=== PATIENT | female | born 1955 | race Hispanic/Latino ===

== ENCOUNTER 2020-07-05 02:47 | Inpatient (IN) | payer MEDICAID, MEDICARE ==
[2020-07-05] MEDS ORDERED: Nitroglycerin 0.4 MG TAB 1 EACH ONE (03:11)
[2020-07-05] MEDS ORDERED: Furosemide 40 MG/4 ML VIAL ONE (03:11)
[2020-07-05 03:52] LABS: #Basophils 0.1 thou/uL (0.0-0.2); #Eosinphils 0.2 thou/uL (0.0-0.7); #Monocytes 0.3 thou/uL (0.11-0.59); #Neutrophils 2.5 thou/uL (1.40-6.50); %Basophils 1.7 % (0.0-1.0); %Eosinophils 4.8 % (0.0-10.0); %Lymphocytes 39.6 % (21.0-51.0); %Monocytes 5.4 % (0.0-10.0); %Neutrophils 48.5 % (42.0-75.0); Hemoglobin 14.2 g/dL (12.0-16.0); Mean Corpuscular HGB CONC 33.8 g/dL (32.0-36.0); Mean Corpuscular Hemoglobin 34.6 pg (27.0-31.0); Platelet Count 176 thou/uL (130-400); RBC Distribution Width 11.7 % (11.5-14.5); Red Blood Cell (RBC) Count 4.11 mill/uL (4.20-5.40); White Blood Cell (WBC) Count 5.1 thou/uL (4.8-10.8)
[2020-07-05 03:57] LABS: Bacteria/HPF 3+ HPF (None Seen); Bilirubin Negative (Negative); Blood, Urine Negative (Negative); Clarity Clear (Clear); Glucose, Urine (Dipstick) Normal (Negative); Ketone, Urine Negative (Negative); Leukocyte 25 Leu/uL (Negative); Nitrite Negative (Negative); Protein, Urine (Dipstick) 50 mg/dL (Neg-Trace); RBC/HPF 0-3 HPF (0-3); Specific Gravity, Urine 1.019 (1.002-1.036); Squamous Epithelial 0-3 HPF (0-3); Urobilinogen Normal mg/dL (Less than 2); pH, Urine 6.5 (5.0-9.0)
[2020-07-05 04:17] LABS: ALT (SGPT) 22 U/L (8-55); AST (SGOT) 25 U/L (5-34); Alkaline Phosphatase 61 U/L (40-110); Anion Gap 15 mmol/L (10-20); BUN (Urea Nitrogen) 30 mg/dL (9.8-20.1); Bilirubin, Total 0.3 mg/dL (0.2-1.2); Calc. Creatinine Clearance 0 mL/min (70-130); Calcium 9.5 mg/dL (7.8-10.44); Carbon Dioxide 25 mmol/L (23-31); Chloride 105 mmol/L (98-107); Estimated GFR-MDRD 49; Globulin 3.9 g/dL (2.4-3.5); Glucose 107 mg/dL (80-115); Protein, Total 7.9 g/dL (6.0-8.3); Sodium 141 mmol/L (136-145)
[2020-07-05] MEDS ORDERED: Nitroglycerin 2% Ointment 1 INCH/1 GM Packet ONE (04:20)
[2020-07-05 04:34] LABS: CKMB 3.9 ng/mL (0-6.6)
[2020-07-05] MEDS ORDERED: Aspirin Chewable 81 MG TAB ONE (04:44)
[2020-07-05 06:36] LABS: Troponin I 0.041 ng/mL (< 0.028)
[2020-07-05] MEDS ORDERED: Ketorolac Tromethamine 30 MG/ML VIAL ONE (07:44)
[2020-07-05] MEDS ORDERED: traMADol HCl 50 MG TAB ONE (07:52)
--- NOTE | 2020-07-05 08:15 | RAD ---
Chest AP view INDICATION: History of dyspnea and cough COMPARISON: Prior exam dated June 19, 2020 FINDINGS: Lungs: There are worsening interstitial opacities within both lower lobes likely reflected of acute on chronic interstitial disease. Cardiac silhouette: There is a worsening moderate cardiomegaly Pulmonary vasculature: There is worsening moderate pulmonary vascular congestion Pleural spaces: There are new small bilateral pleural effusions. Upper abdomen: No abnormality seen. Osseous structures: No acute osseous abnormality. Additional findings: None. IMPRESSION: Findings of CHF
[2020-07-05 09:10] LABS: Troponin I 0.051 ng/mL (< 0.028)
[2020-07-05 13:00] LABS: SARS-CoV-2 MS2 Positive; SARS-CoV-2 N Gene Negative; SARS-CoV-2 S Gene Negative; SARS-CoV-2 by NAA Not Detected (NotDetected); SARS-CoV-2 orf1ab Negative
[2020-07-05] MEDS ORDERED: Ondansetron ODT 4 MG TAB SL PRN (15:15)
[2020-07-05] MEDS ORDERED: Ondansetron PF 4 MG/2 ML Vial IVP PRN ×2 (15:15→16:03)
[2020-07-05] MEDS ORDERED: Acetaminophen 325 MG TAB PO PRN (15:15)
--- NOTE | 2020-07-05 15:23 | PDOC.HOSPP ---
- Subjective Encounter Date: 07/05/20 Encounter Time: 15:20 - Objective Vital Signs & Weight: Vital Signs (12 hours) Temp Pulse Resp BP Pulse Ox 07/05/20 14:52 98.5 F 86 16 177/90 H 95 Weight Weight 93 lb Result Diagrams: 07/05/20 03:10 07/05/20 03:10 Additional Labs: Microbiology 07/05/20 03:36 Urine clean catch Urine Culture - Preliminary Laboratory Tests 09/14/16 03/28/17 07/05/20 03:43 15:45 03:10 Lactic Acid B-Natriuretic Peptide 176.2 H 36.1 1114.3 H Troponin I SARS-CoV-2 (PCR) 07/05/20 07/05/20 07/05/20 03:10 03:36 03:38 Lactic Acid 1.3 B-Natriuretic Peptide Troponin I 0.044 H SARS-CoV-2 (PCR) Not Detected 07/05/20 07/05/20 05:42 08:36 Lactic Acid B-Natriuretic Peptide Troponin I 0.041 H 0.051 H SARS-CoV-2 (PCR) Radiology Reviewed by me: Yes (PCXR - bilat infiltrates, + edema) EKG Reviewed by me: Yes (Tele - )
[2020-07-05] MEDS: Morphine 2 MG/ML VIAL SLOW IVP PRN ×2 (15:43→20:35)
[2020-07-05] MEDS ORDERED: Labetalol HCl 100 MG/20 ML VIAL SLOW IVP PRN (16:03)
[2020-07-05] MEDS ORDERED: Nitroglycerin 0.4 MG TAB (25 Tab Bottle) SL PRN (16:03)
[2020-07-05] MEDS ORDERED: Benzonatate 100 MG CAP PO PRN (16:03)
[2020-07-05] MEDS ORDERED: Acetaminophen 500 MG TAB PO PRN (16:03)
[2020-07-05] MEDS ORDERED: Ondansetron ODT 4 MG TAB PO PRN (16:03)
[2020-07-05] MEDS ORDERED: Furosemide 40 MG/4 ML VIAL SLOW IVP SCH (16:15)
[2020-07-05 18:20] LABS: Troponin I 0.038 ng/mL (< 0.028)
[2020-07-05] MEDS: Gabapentin 300 MG CAP PO SCH (20:33)
[2020-07-05] MEDS: Famotidine 20 MG TAB PO SCH (20:33)
[2020-07-05] MEDS: Topiramate 25 MG TAB PO SCH (20:34)
[2020-07-05] MEDS: Metoprolol Tartrate 25 MG TAB PO SCH (20:34)
[2020-07-05] MEDS: Amitriptyline HCl 25 MG TAB PO SCH (20:34)
[2020-07-05] MEDS: OLANZapine 5 MG TAB PO SCH (20:34)
[2020-07-05] MEDS: Ciprofloxacin 500 MG TAB PO SCH (20:35)
[2020-07-05] MEDS ORDERED: Lisinopril 10 MG TAB PO SCH (21:00)
[2020-07-05 21:57] LABS: Troponin I 0.038 ng/mL (< 0.028)
--- NOTE | 2020-07-05 22:12 | HP ---
PRIMARY CARE PROVIDER: Roxanne Ochoa. CHIEF COMPLAINT: Shortness of breath. HISTORY OF PRESENT ILLNESS: This is a 65-year-old female who presented to [facility] Emergency Department complaining of approximately 1- to 2-day history of increased shortness of breath, cough, worsening in the last 12 to 24 hours. The patient did admit to associated chest pain, especially when coughing that was nonproductive. The patient denied any similar events recently and states she is taking no outpatient medications. The patient states she previously was in the [place], [place] area with her primary care provider, but has since moved to the [facility] and has not established a new primary care provider. The patient denied any documented fever, chills, or exposure history. The patient does admit to using cocaine in the last 2 to 3 weeks. The patient with a known history of previous drug use including cocaine and methamphetamines. The patient does admit to mild ankle swelling bilaterally, which has since improved. The patient denied any jaw discomfort, left arm pain, or back pain. The patient denied any recent trauma or injury. In the emergency room, the patient underwent general evaluation including chest imaging showing bilateral pulmonary infiltrates consistent with pulmonary edema. The patient received IV Lasix in addition to tramadol, aspirin 324 mg, transdermal nitroglycerin, and sublingual nitroglycerin. PAST MEDICAL HISTORY: 1. Hepatitis C. 2. Myocardial infarction x2 in the early . 3. Hypertension, untreated. 4. Tobacco abuse. 5. Polysubstance abuse. PAST SURGICAL HISTORY: 1. Status post small bowel obstruction. 2. Status post left thumb amputation. 3. Status post appendectomy. 4. Status post cholecystectomy. 5. Status post section x2. 6. Status post hysterectomy. PSYCHIATRIC HISTORY: 1. Anxiety disorder. 2. Bipolar disorder. 3. Depression. CURRENT MEDICATIONS: Reviewed and negative. ALLERGIES: CODEINE, COMPAZINE, TORADOL. FAMILY HISTORY: Positive for hypertension. SOCIAL HISTORY: Recently moved to the [facility] area from [place], [place]. Unemployed. Smokes up to a pack of cigarettes daily as well as vaping. Last cocaine use 2 to 3 weeks prior to this evaluation. History of methamphetamine use. No current alcohol. REVIEW OF SYSTEMS: CONSTITUTIONAL: Negative for weight loss or gain, ability to conduct usual activities. SKIN: Negative for rash, itching. EYES: Negative for double vision, pain. ENT/MOUTH: Negative for nose bleeding, neck stiffness, pain, tenderness. CARDIOVASCULAR: Negative for palpitations, dyspnea on exertion, orthopnea. RESPIRATORY: Negative for shortness of breath, wheezing, cough, hemoptysis, fever or night sweats. GASTROINTESTINAL: Negative for poor appetite, abdominal pain, heartburn, nausea, vomiting, constipation, or diarrhea. GENITOURINARY: Negative for urgency, frequency, dysuria, nocturia. MUSCULOSKELETAL: Negative for pain, swelling. NEUROLOGIC/PSYCHIATRIC: Negative for anxiety, depression. ALLERGY/IMMUNOLOGIC: Negative for skin rash, bleeding tendency. Otherwise negative except as stated per HPI. PHYSICAL EXAMINATION ON ADMISSION: VITAL SIGNS: Blood pressure 177/90, pulse 86, respiratory rate 16, temperature 98.5 degrees Fahrenheit, O2 saturation 95% on room air. GENERAL APPEARANCE: This is a 65-year-old female, alert and oriented x3, pleasant, responsive, in no acute distress. HEENT: Pupils are equal, round, reactive to light and accommodation. Extraocular muscles are intact. No scleral icterus. No conjunctival injection. Nares patent. OP is clear. NECK: Supple. No cervical adenopathy. No thyromegaly. No carotid bruits. No JVD appreciated. Cervical spine with full active and passive range of motion. No meningeal signs noted. CHEST: A few basilar crackles noted. Occasional expiratory wheeze bilaterally. CARDIOVASCULAR: S1, S2 without noted murmur, rub, or gallop. ABDOMEN: Rounded, soft, nontender, and nondistended. Bowel sounds are positive in all 4 quadrants. There is no hepatosplenomegaly. No abdominal bruits. No rebound or guarding appreciated. EXTREMITIES: Warm and dry with fair turgor. No clubbing, cyanosis, or asymmetric edema appreciated. Pulses palpable distally at the dorsalis pedis, posterior tibial, and popliteal arteries bilaterally. Capillary refill less than 2 seconds. NEUROLOGIC: Cranial nerves 2 through 12 are grossly intact. No focal or lateralizing signs appreciated. PERTINENT LABORATORY AND X-RAY FINDINGS: Sodium 141 potassium 4, chloride 105, CO2 of 25, BUN 30, creatinine 1.12, estimated GFR of 49, glucose 107. Lactic acid level 1.3. Calcium 9.5. LFTs within normal limits. Troponin I ranged between 0.041 to 0.051. BNP 1114, previously noted 36.1 on 03/28/2017. CBC showed a white blood cell count of 5.1, hemoglobin 14, hematocrit 42, MCV 102, platelet count 176 with 48.5% neutrophils. COVID-19 PCR not detected on 07/05/2020. Urine culture dated 07/05/2020, showed mixed culture with final identification pending. Portable chest x-ray dated 07/05/2020, showed bilateral pulmonary edema. Chronic changes noted. EKG dated 07/05/2020, by my interpretation shows sinus mechanism with heart rates in the 90s. Normal axis. Incomplete left bundle-branch block pattern. No acute ST-T wave changes appreciated. ASSESSMENT AND PLAN: 1. Acute congestive heart failure exacerbation. The patient will be admitted to the telemetry unit. We will continue Lasix 40 mg IV q.12 h. Check 2D transthoracic echocardiogram in the a.m. Consult Cardiology Service for evaluation. Repeat BNP in the a.m. Continue serial troponin I q.3 h. x2. Check TSH and magnesium level in the a.m. 2. Acute hypoxic respiratory failure secondary to #1. Improved after IV Lasix. We will continue oxygen supplementation as needed. See #1 above. 3. Acute kidney injury. We will continue to monitor renal status. Avoid nephrotoxic agents and limit contrast exposure. Serial creatinine in the a.m. 4. Type 2 myocardial infarction secondary to demand ischemia and #1. Continue medical management. Aspirin 81 mg daily. Consult Cardiology Service for any further recommendations. A 2D transthoracic echocardiogram pending. 5. Polysubstance abuse. Check urine drug screen today. We will offer cessation resources prior to discharge. 6. Prophylaxis. Sequential compression devices while in bed. Pepcid 20 mg p.o. b.i.d.. CODE STATUS: Full. Surrogate medical decision maker is the patient's friend whose name is Nav in the patient's room. Job ID: [id number]
[2020-07-06 03:24] LABS: Amphetamine Not Detected (NotDetected); Barbiturates Screen Not Detected (NotDetected); Benzodiazepine Screen Not Detected (NotDetected); Cocaine Metabolite Screen Detected (NotDetected); Medtox Control Line Valid? VALID (VALID); Medtox Reader # READER 1; Methadone Not Detected (NotDetected); Methamphetamine Not Detected (NotDetected); Opiate Screen Detected (NotDetected); Oxycodone Screen Not Detected (NotDetected); Phencyclidine (PCP) Not Detected (NotDetected); THC/Cannabinoid Screen Not Detected (NotDetected); Tricyclic Screen Not Detected (NotDetected)
[2020-07-06 05:06] LABS: Anion Gap 15 mmol/L (10-20); BUN (Urea Nitrogen) 34 mg/dL (9.8-20.1); Calc. Creatinine Clearance 31 mL/min (70-130); Carbon Dioxide 25 mmol/L (23-31); Chloride 102 mmol/L (98-107); Estimated GFR-MDRD 45; Glucose 127 mg/dL (80-115); Magnesium 1.9 mg/dL (1.6-2.6); Potassium 3.9 mmol/L (3.5-5.1); Sodium 138 mmol/L (136-145)
[2020-07-06] MEDS: Furosemide 40 MG/4 ML VIAL SLOW IVP SCH ×2 (05:15→15:18)
[2020-07-06] MEDS: Ciprofloxacin 500 MG TAB PO SCH ×2 (05:15→21:52)
[2020-07-06 05:20] LABS: Band 4 % (5-11); Eosinophils 2 % (0-10); Hemoglobin 13.9 g/dL (12.0-16.0); Lymphocytes 18 % (21-51); MDiff Complete? YES; Macrocytosis SLIGHT = 6-15 cells (100X) (0-5/hpf); Mean Corpuscular Hemoglobin 34.2 pg (27.0-31.0); Mean Platelet Volume 9.9 fL (7.4-10.4); Monocytes 6 % (0-10); Neutrophil 70 % (42-75); Platelet Morphology Comment PLT clumps seen-ADEQ; RBC Distribution Width 11.6 % (11.5-14.5); Red Blood Cell (RBC) Count 4.07 mill/uL (4.20-5.40); White Blood Cell (WBC) Count 5.2 thou/uL (4.8-10.8)
[2020-07-06] MEDS: Metoprolol Tartrate 25 MG TAB PO SCH (08:45)
[2020-07-06] MEDS: Ubidecarenone 50 MG CAP PO SCH (08:45)
[2020-07-06] MEDS: Famotidine 20 MG TAB PO SCH (08:45)
[2020-07-06] MEDS: Gabapentin 300 MG CAP PO SCH ×3 (08:45→21:52)
[2020-07-06] MEDS: Polyethylene Glycol 3350 17 GM Packet PO SCH (08:46)
[2020-07-06] MEDS: Aspirin 81 mg Enteric Coated Tablet PO SCH (08:46)
[2020-07-06] MEDS: Multivitamin W/ Minerals 1 TAB PO SCH (08:46)
[2020-07-06] MEDS ORDERED: Amlodipine 10 MG TAB PO SCH (09:00)
[2020-07-06] MEDS: Topiramate 25 MG TAB PO SCH ×2 (09:00→21:53)
--- NOTE | 2020-07-06 10:41 | CON ---
DATE OF CONSULTATION: CONSULTING PHYSICIAN: Martin Ho HISTORY OF PRESENT ILLNESS: The patient is a 65-year-old woman, who presents for cardiac evaluation of dyspnea. The patient has a long history apparently of congestive heart failure and coronary artery disease. She states she has previously suffered myocardial infarctions in the . The patient unfortunately has not had good follow up. She states she was last admitted with congestive heart failure in 2006. The patient has not had close followup and has been noncompliant with her medications. The patient states she had been out of her medication, and started feeling short of breath. She presented to the emergency room for further evaluation. PAST MEDICAL HISTORY: 1. Coronary artery disease. 2. Myocardial infarction. 3. Hypertension. 4. Bipolar disorder. 5. Anxiety disorder. PAST SURGICAL HISTORY: Appendectomy, cholecystectomy, , hysterectomy, small bowel obstruction. ALLERGIES: CODEINE, COMPAZINE, AND TORADOL. MEDICATIONS: None. The patient was noncompliant. FAMILY HISTORY: Positive family history of heart disease. PHYSICAL EXAMINATION: GENERAL: Thin woman, in no acute distress. VITAL SIGNS: Blood pressure 111/67. NECK: Showed no jugular venous distention. LUNGS: Have just a few crackles in the bases. HEART: Regular rate and rhythm. Normal S1 and S2. No murmurs. ABDOMEN: Nondistended. EXTREMITIES: Show no edema. VASCULAR: Radial pulses are 2+. LABORATORY DATA: Sodium 138, potassium 3.9, chloride 102, bicarbonate 25, BUN 34, and creatinine 1.2. Troponin was 0.038. Her white blood cell count is 5.2, hemoglobin 13.9, hematocrit 42.3, and platelets were 176. Chest x-ray revealed cardiomyopathy with mild pulmonary vascular redistribution. Echocardiogram revealed [id number] decreased left ventricular ejection fraction of 30% to 35%. Toxicology, positive for cocaine. IMPRESSION: 1. Congestive heart failure secondary to systolic dysfunction. 2. History of coronary artery disease. 3. History of myocardial infarction. 4. Hepatitis C. 5. Illicit drug use. PLAN: This patient presents with recurrent congestive heart failure. From a cardiac standpoint, I would recommend she be placed on Entresto. She will be started also on spironolactone. We will switch to Coreg from Toprol . The life-threatening consequences of this patient being noncompliant with her medication and followup have been explained to the patient. The patient also understands that she is at significant risk continuing to use illicit drugs. We will follow this patient with you through her hospitalization. Job ID: [id number] MICKEY
[2020-07-06 12:23] VITALS: BMI 21.0
--- NOTE | 2020-07-06 16:54 | PDOC.HOSPP ---
- Subjective Encounter Date: 07/06/20 Subjective: The patient has been saturating well on room air today. - Objective Vital Signs & Weight: Vital Signs (12 hours) Temp Pulse Resp BP Pulse Ox 07/06/20 15:06 97.7 F 70 16 106/56 L 93 L 07/06/20 11:54 97.7 F 66 17 123/73 96 07/06/20 08:00 96 07/06/20 07:02 97.9 F 58 L 16 111/67 95 Weight Admit Weight 93 lb Weight 97 lb 3.2 oz I&O: 07/05/20 07/06/20 07/07/20 06:59 06:59 06:59 Intake Total 300 Output Total 200 Balance 100 Result Diagrams: 07/06/20 04:05 07/06/20 04:05 Hospitalist ROS - Medication Medications: Active Medications Generic Name Dose Route Start Last Admin Trade Name Freq PRN Reason Stop Dose Admin Amitriptyline HCl 50 mg 07/05/20 21:00 07/05/20 20:34 Amitriptyline Hcl 25 Mg Tab PO 50 mg HS FELIX Administration Aspirin 81 mg 07/06/20 09:00 07/06/20 08:46 Aspirin 81 Mg Enteric Coated Tablet PO 81 mg DAILY FELIX Administration Ciprofloxacin 500 mg 07/05/20 20:00 07/06/20 05:15 Ciprofloxacin 500 Mg Tab PO 500 mg 0600,2000 FELIX Administration Coenzyme Q10 100 mg 07/06/20 09:00 07/06/20 08:45 Ubidecarenone 50 Mg Cap PO 100 mg DAILY FELIX Administration Furosemide 40 mg 07/06/20 06:00 07/06/20 15:18 Furosemide 40 Mg/4 Ml Vial SLOW IVP 40 mg 0600,1400 FELIX Administration Gabapentin 600 mg 07/05/20 21:00 07/06/20 15:19 Gabapentin 300 Mg Cap PO 600 mg TID FELIX Administration Iron/Minerals/Multivitamins 1 tab 07/06/20 09:00 07/06/20 08:46 Multivitamin W/ Minerals 1 Tab PO 1 tab DAILY FELIX Administration Morphine Sulfate 2 mg 07/05/20 15:13 07/05/20 20:35 Morphine 2 Mg/Ml Vial SLOW IVP 2 mg Q4H PRN Administration Pain Olanzapine 5 mg 07/05/20 21:00 07/05/20 20:34 Olanzapine 5 Mg Tab PO 5 mg HS FELIX Administration Polyethylene Glycol 17 gm 07/06/20 09:00 07/06/20 08:46 Polyethylene Glycol 3350 17 Gm Packet PO 17 gm DAILY FELIX Administration Topiramate 25 mg 07/05/20 21:00 07/06/20 09:00 Topiramate 25 Mg Tab PO 25 mg BID FELIX Administration - Exam General Appearance: awake alert ENT: normocephalic atraumatic Neck: supple, no JVD Heart: RRR Respiratory: normal chest expansion, no tachypnea Neurological: cranial nerve grossly intact, no focal deficits Hosp A/P (1) Heart failure with reduced ejection fraction Code(s): I50.20 - UNSPECIFIED SYSTOLIC (CONGESTIVE) HEART FAILURE Status: Acute (2) Bipolar 1 disorder, depressed Status: Chronic (3) Hypertension Code(s): I10 - ESSENTIAL (PRIMARY) HYPERTENSION Status: Chronic - Plan The patient's respiratory status is improving. She is diuresing well. Continue guideline directed therapy with beta-blockers and Entresto per cardiology. Hopefully she can be discharged home soon.
[2020-07-06] MEDS: Carvedilol 3.125 MG TAB PO SCH (17:37)
[2020-07-06] MEDS: Naproxen 500 MG TAB PO PRN (17:37)
[2020-07-06] MEDS: OLANZapine 5 MG TAB PO SCH (21:52)
[2020-07-06] MEDS: Amitriptyline HCl 25 MG TAB PO SCH (21:53)
[2020-07-06] MEDS: hydrOXYzine 25 MG TAB PO PRN (21:56)
[2020-07-07] MEDS: Furosemide 40 MG/4 ML VIAL SLOW IVP SCH (05:35)
[2020-07-07] MEDS: Ciprofloxacin 500 MG TAB PO SCH ×2 (05:35→21:08)
[2020-07-07] MEDS: Ubidecarenone 50 MG CAP PO SCH (10:06)
[2020-07-07] MEDS: Famotidine 20 MG TAB PO SCH (10:06)
[2020-07-07] MEDS: Multivitamin W/ Minerals 1 TAB PO SCH (10:07)
[2020-07-07] MEDS: Aspirin 81 mg Enteric Coated Tablet PO SCH (10:07)
[2020-07-07] MEDS: Gabapentin 300 MG CAP PO SCH ×3 (10:07→21:06)
[2020-07-07] MEDS: Topiramate 25 MG TAB PO SCH ×2 (10:07→21:08)
[2020-07-07] MEDS: Spironolactone 25 MG TAB PO SCH (10:08)
[2020-07-07] MEDS: Carvedilol 3.125 MG TAB PO SCH ×2 (10:08→16:43)
[2020-07-07] MEDS: Polyethylene Glycol 3350 17 GM Packet PO SCH (10:09)
[2020-07-07] MEDS: Morphine 2 MG/ML VIAL SLOW IVP PRN ×2 (12:58→19:05)
--- NOTE | 2020-07-07 16:56 | PDOC.HOSPP ---
- Subjective Encounter Date: 07/07/20 Subjective: The patient complains of increased lightheadedness today. She was unable to get out of her bed. Her blood pressure has been low this morning. - Objective Vital Signs & Weight: Vital Signs (12 hours) Temp Pulse Resp BP BP Pulse Ox 07/07/20 16:00 97.3 F L 78 17 118/59 L 94 L 07/07/20 12:23 97.6 F 79 20 117/60 96 07/07/20 07:30 97.3 F L 71 22 H 117/65 100 07/07/20 05:00 97.7 F 66 16 124/65 94 L Weight Admit Weight 93 lb Weight 97 lb 3.2 oz I&O: 07/06/20 07/07/20 07/08/20 06:59 06:59 06:59 Intake Total 300 Output Total 200 Balance 100 Result Diagrams: 07/06/20 04:05 07/06/20 04:05 Hospitalist ROS - Medication Medications: Active Medications Generic Name Dose Route Start Last Admin Trade Name Niki PRN Reason Stop Dose Admin Amitriptyline HCl 50 mg 07/05/20 21:00 07/06/20 21:53 Amitriptyline Hcl 25 Mg Tab PO 50 mg HS FELIX Administration Aspirin 81 mg 07/06/20 09:00 07/07/20 10:07 Aspirin 81 Mg Enteric Coated Tablet PO 81 mg DAILY FELIX Administration Carvedilol 3.125 mg 07/06/20 17:00 07/07/20 10:08 Carvedilol 3.125 Mg Tab PO 3.125 mg BID-WM FELIX Administration Ciprofloxacin 500 mg 07/05/20 20:00 07/07/20 05:35 Ciprofloxacin 500 Mg Tab PO 500 mg FELIX Administration Coenzyme Q10 100 mg 07/06/20 09:00 07/07/20 10:06 Ubidecarenone 50 Mg Cap PO 100 mg DAILY FELIX Administration Famotidine 20 mg 07/07/20 09:00 07/07/20 10:06 Famotidine 20 Mg Tab PO 20 mg DAILY FELIX Administration Gabapentin 600 mg 07/05/20 21:00 07/07/20 10:07 Gabapentin 300 Mg Cap PO 600 mg TID FELIX Administration Hydroxyzine HCl 25 mg 07/05/20 15:23 07/06/20 21:56 Hydroxyzine 25 Mg Tab PO 25 mg TID PRN Administration Anxiety Iron/Minerals/Multivitamins 1 tab 07/06/20 09:00 07/07/20 10:07 Multivitamin W/ Minerals 1 Tab PO 1 tab DAILY FELIX Administration Morphine Sulfate 2 mg 07/05/20 15:13 07/07/20 12:58 Morphine 2 Mg/Ml Vial SLOW IVP 2 mg Q4H PRN Administration Pain Naproxen 250 mg 07/06/20 16:49 07/06/20 17:37 Naproxen 500 Mg Tab PO 250 mg BID PRN Administration Headache Olanzapine 5 mg 07/05/20 21:00 07/06/20 21:52 Olanzapine 5 Mg Tab PO 5 mg HS FELIX Administration Polyethylene Glycol 17 gm 07/06/20 09:00 07/07/20 10:09 Polyethylene Glycol 3350 17 Gm Packet PO Not Given DAILY FELIX Spironolactone 25 mg 07/07/20 08:00 07/07/20 10:08 Spironolactone 25 Mg Tab PO 25 mg QAM-WM FELIX Administration Topiramate 25 mg 07/05/20 21:00 07/07/20 10:07 Topiramate 25 Mg Tab PO 25 mg BID FELIX Administration - Exam General Appearance: awake alert ENT: normocephalic atraumatic Neck: supple, no JVD Heart: RRR, no murmur, no gallops Respiratory: normal chest expansion, no tachypnea Gastrointestinal: soft, non-tender, non-distended Neurological: cranial nerve grossly intact, no focal deficits Hosp A/P (1) Heart failure with reduced ejection fraction Code(s): I50.20 - UNSPECIFIED SYSTOLIC (CONGESTIVE) HEART FAILURE Status: Acute (2) Bipolar 1 disorder, depressed Status: Chronic (3) Hypertension Code(s): I10 - ESSENTIAL (PRIMARY) HYPERTENSION Status: Chronic - Plan The patient is saturating well on room air. Her hypotension is likely due to overdiuresis. Hold diuretics. Continue carvedilol and Entresto per cardiology. Observe the patient overnight to monitor her blood pressure.
[2020-07-07] MEDS: Naproxen 500 MG TAB PO PRN (17:06)
[2020-07-07] MEDS: OLANZapine 5 MG TAB PO SCH (21:06)
[2020-07-07] MEDS: Amitriptyline HCl 25 MG TAB PO SCH (21:07)
[2020-07-08] MEDS: Ciprofloxacin 500 MG TAB PO SCH (05:07)
[2020-07-08 07:47] LABS: Anion Gap 11 mmol/L (10-20); BUN (Urea Nitrogen) 45 mg/dL (9.8-20.1); Calc. Creatinine Clearance 33 mL/min (70-130); Calcium 8.5 mg/dL (7.8-10.44); Carbon Dioxide 26 mmol/L (23-31); Chloride 106 mmol/L (98-107); Estimated GFR-MDRD 42; Glucose 115 mg/dL (80-115); Potassium 3.9 mmol/L (3.5-5.1); Sodium 139 mmol/L (136-145)
[2020-07-08] MEDS: Spironolactone 25 MG TAB PO SCH (09:13)
[2020-07-08] MEDS: Ubidecarenone 50 MG CAP PO SCH (09:13)
[2020-07-08] MEDS: Multivitamin W/ Minerals 1 TAB PO SCH (09:14)
[2020-07-08] MEDS: Aspirin 81 mg Enteric Coated Tablet PO SCH (09:16)
[2020-07-08] MEDS: Carvedilol 3.125 MG TAB PO SCH ×2 (09:16→17:25)
[2020-07-08] MEDS: Famotidine 20 MG TAB PO SCH (09:16)
[2020-07-08] MEDS: Gabapentin 300 MG CAP PO SCH ×3 (09:16→21:33)
[2020-07-08] MEDS: Topiramate 25 MG TAB PO SCH ×2 (09:17→21:33)
[2020-07-08] MEDS: Polyethylene Glycol 3350 17 GM Packet PO SCH (09:17)
[2020-07-08] MEDS: HYDROcodone/Acetaminophen 5/325 mg Tablet PO PRN ×2 (11:34→15:35)
--- NOTE | 2020-07-08 16:42 | PDOC.HOSPP ---
- Subjective Subjective: still c/o sob with minimal exertion. no chest pain. BP stable - Objective Vital Signs & Weight: Vital Signs (12 hours) Temp Pulse Resp BP Pulse Ox 07/08/20 07:51 97.6 F 74 20 128/64 96 Weight Admit Weight 93 lb Weight 104 lb 4.8 oz I&O: 07/07/20 07/08/20 07/09/20 06:59 06:59 06:59 Intake Total 480 Balance 480 Result Diagrams: 07/06/20 04:05 07/08/20 07:21 Radiology Reviewed by me: Yes EKG Reviewed by me: Yes Hospitalist ROS - Medication Medications: Active Medications Generic Name Dose Route Start Last Admin Trade Name Freq PRN Reason Stop Dose Admin Hydrocodone Bitart/Acetaminophen 1 tab 07/08/20 10:58 07/08/20 15:35 Hydrocodone/Acetaminophen 5/325 Mg Tablet PO 1 tab Q4H PRN Administration Moderate Pain (4-6) Amitriptyline HCl 50 mg 07/05/20 21:00 07/07/20 21:07 Amitriptyline Hcl 25 Mg Tab PO 50 mg HS FELIX Administration Aspirin 81 mg 07/06/20 09:00 07/08/20 09:16 Aspirin 81 Mg Enteric Coated Tablet PO 81 mg DAILY FELIX Administration Carvedilol 3.125 mg 07/06/20 17:00 07/08/20 09:16 Carvedilol 3.125 Mg Tab PO 3.125 mg BID-WM FELIX Administration Coenzyme Q10 100 mg 07/06/20 09:00 07/08/20 09:13 Ubidecarenone 50 Mg Cap PO 100 mg DAILY FELIX Administration Famotidine 20 mg 07/07/20 09:00 07/08/20 09:16 Famotidine 20 Mg Tab PO 20 mg DAILY FELIX Administration Gabapentin 600 mg 07/05/20 21:00 07/08/20 15:35 Gabapentin 300 Mg Cap PO 600 mg TID FELIX Administration Hydroxyzine HCl 25 mg 07/05/20 15:23 07/06/20 21:56 Hydroxyzine 25 Mg Tab PO 25 mg TID PRN Administration Anxiety Iron/Minerals/Multivitamins 1 tab 07/06/20 09:00 07/08/20 09:14 Multivitamin W/ Minerals 1 Tab PO 1 tab DAILY FELIX Administration Morphine Sulfate 2 mg 07/05/20 15:13 07/07/20 19:05 Morphine 2 Mg/Ml Vial SLOW IVP 2 mg Q4H PRN Administration Pain Olanzapine 5 mg 07/05/20 21:00 07/07/20 21:06 Olanzapine 5 Mg Tab PO 5 mg HS FELIX Administration Polyethylene Glycol 17 gm 07/06/20 09:00 07/08/20 09:17 Polyethylene Glycol 3350 17 Gm Packet PO 17 gm DAILY FELIX Administration Sacubitril/Valsartan 1 tab 07/07/20 21:00 07/08/20 11:34 Sacubitril 24mg/Valsartan 26mg Tab PO 1 tab BID FELIX Administration Spironolactone 25 mg 07/07/20 08:00 07/08/20 09:13 Spironolactone 25 Mg Tab PO 25 mg QAM-WM FELIX Administration Topiramate 25 mg 07/05/20 21:00 07/08/20 09:17 Topiramate 25 Mg Tab PO 25 mg BID FELIX Administration - Exam General Appearance: NAD Eye: PERRL ENT: normocephalic atraumatic Neck: supple Heart: RRR Respiratory: rhonchi Gastrointestinal: soft Extremities: no cyanosis Skin: normal turgor Neurological: cranial nerve grossly intact Psychiatric: normal affect, normal behavior, A&O x 3 Hosp A/P - Plan CHF exac, acute on chronic systolic dysfunction --cont Entresto, Coreg. Restart oral Lasix in AM. Cont spironolactone. --rpt labs in AM. BNP trended down Bipolar disorder --cont home meds HTN - BP stable --cont low dose Coreg, Entresto as above E coli UTI --cont home med, Cipro CKD 3 --d/c Naproxen, avoid NSAID --monitor renal function Drug Abuse --UDS positive for cocaine --counseled
[2020-07-08] MEDS: Morphine 2 MG/ML VIAL SLOW IVP PRN (21:32)
[2020-07-08] MEDS: OLANZapine 5 MG TAB PO SCH (21:33)
[2020-07-08] MEDS: Amitriptyline HCl 25 MG TAB PO SCH (21:33)
[2020-07-09 04:47] LABS: Anion Gap 14 mmol/L (10-20); BUN (Urea Nitrogen) 43 mg/dL (9.8-20.1); Calc. Creatinine Clearance 33 mL/min (70-130); Calcium 8.5 mg/dL (7.8-10.44); Carbon Dioxide 23 mmol/L (23-31); Chloride 106 mmol/L (98-107); Estimated GFR-MDRD 41; Glucose 117 mg/dL (80-115); Magnesium 2.2 mg/dL (1.6-2.6); Potassium 4.5 mmol/L (3.5-5.1); Sodium 138 mmol/L (136-145)
[2020-07-09] MEDS: Aspirin 81 mg Enteric Coated Tablet PO SCH (08:27)
[2020-07-09] MEDS: Famotidine 20 MG TAB PO SCH (08:27)
[2020-07-09] MEDS: Furosemide 40 MG TAB PO SCH (08:27)
[2020-07-09] MEDS: Carvedilol 3.125 MG TAB PO SCH ×2 (08:27→16:06)
[2020-07-09] MEDS: Spironolactone 25 MG TAB PO SCH (08:27)
[2020-07-09] MEDS: Gabapentin 300 MG CAP PO SCH ×3 (08:27→20:21)
[2020-07-09] MEDS: HYDROcodone/Acetaminophen 5/325 mg Tablet PO PRN ×3 (08:28→17:39)
[2020-07-09] MEDS: Multivitamin W/ Minerals 1 TAB PO SCH (08:28)
[2020-07-09] MEDS: Topiramate 25 MG TAB PO SCH ×2 (08:28→20:21)
[2020-07-09] MEDS: Ubidecarenone 50 MG CAP PO SCH (08:28)
[2020-07-09] MEDS: Polyethylene Glycol 3350 17 GM Packet PO SCH (08:29)
--- NOTE | 2020-07-09 14:02 | PDOC.HOSPP ---
- Subjective Subjective: Patient was seen examined at bedside. Patient still complains of short of breath with exertion. Unable to keep adequate input and output. She denies chest pain. Patient was counseled with regards to avoid recreational drug use. - Objective Vital Signs & Weight: Vital Signs (12 hours) Temp Pulse Resp BP BP BP Pulse Ox 07/09/20 11:16 98.8 F 72 16 126/65 95 07/09/20 09:07 144/71 H 115/69 07/09/20 07:51 97.5 F L 74 18 144/71 H 95 07/09/20 03:41 98.4 F 78 16 135/88 95 Weight Admit Weight 93 lb Weight 104 lb 14.4 oz I&O: 07/08/20 07/09/20 07/10/20 06:59 06:59 06:59 Intake Total 480 1300 Output Total 550 Balance 480 750 Result Diagrams: 07/06/20 04:05 07/09/20 04:14 Radiology Reviewed by me: Yes EKG Reviewed by me: Yes Hospitalist ROS - Medication Medications: Active Medications Generic Name Dose Route Start Last Admin Trade Name Freq PRN Reason Stop Dose Admin Hydrocodone Bitart/Acetaminophen 1 tab 07/08/20 10:58 07/09/20 13:24 Hydrocodone/Acetaminophen 5/325 Mg Tablet PO 1 tab Q4H PRN Administration Moderate Pain (4-6) Amitriptyline HCl 50 mg 07/05/20 21:00 07/08/20 21:33 Amitriptyline Hcl 25 Mg Tab PO 50 mg HS FELIX Administration Aspirin 81 mg 07/06/20 09:00 07/09/20 08:27 Aspirin 81 Mg Enteric Coated Tablet PO 81 mg DAILY FELIX Administration Carvedilol 3.125 mg 07/06/20 17:00 07/09/20 08:27 Carvedilol 3.125 Mg Tab PO 3.125 mg BID-WM FELIX Administration Coenzyme Q10 100 mg 07/06/20 09:00 07/09/20 08:28 Ubidecarenone 50 Mg Cap PO 100 mg DAILY FELIX Administration Famotidine 20 mg 07/07/20 09:00 07/09/20 08:27 Famotidine 20 Mg Tab PO 20 mg DAILY FELIX Administration Furosemide 40 mg 07/09/20 07:30 07/09/20 08:27 Furosemide 40 Mg Tab PO 40 mg DAILY-AC FELIX Administration Gabapentin 600 mg 07/05/20 21:00 07/09/20 08:27 Gabapentin 300 Mg Cap PO 600 mg TID FELIX Administration Hydroxyzine HCl 25 mg 07/05/20 15:23 07/06/20 21:56 Hydroxyzine 25 Mg Tab PO 25 mg TID PRN Administration Anxiety Iron/Minerals/Multivitamins 1 tab 07/06/20 09:00 07/09/20 08:28 Multivitamin W/ Minerals 1 Tab PO 1 tab DAILY FELIX Administration Olanzapine 5 mg 07/05/20 21:00 07/08/20 21:33 Olanzapine 5 Mg Tab PO 5 mg HS FELIX Administration Polyethylene Glycol 17 gm 07/06/20 09:00 07/09/20 08:29 Polyethylene Glycol 3350 17 Gm Packet PO 17 gm DAILY FELIX Administration Sacubitril/Valsartan 1 tab 07/07/20 21:00 07/09/20 08:28 Sacubitril 24mg/Valsartan 26mg Tab PO 1 tab BID FELIX Administration Spironolactone 25 mg 07/07/20 08:00 07/09/20 08:27 Spironolactone 25 Mg Tab PO 25 mg QAM-WM FELIX Administration Topiramate 25 mg 07/05/20 21:00 07/09/20 08:28 Topiramate 25 Mg Tab PO 25 mg BID FELIX Administration - Exam General Appearance: NAD Eye: PERRL ENT: normocephalic atraumatic Neck: supple Heart: RRR, no murmur Respiratory: CTAB, no wheezes Gastrointestinal: soft, non-tender Skin: normal turgor Neurological: cranial nerve grossly intact Psychiatric: normal affect, normal behavior, A&O x 3 Hosp A/P - Plan CHF exac, acute on chronic systolic dysfunction --cont Entresto, Coreg. Cont spironolactone/Lasix --rpt labs in AM. BNP trended down --home tomorrow if ok from Cardiology standpoint Bipolar disorder --cont home meds HTN - BP stable --cont low dose Coreg, Entresto as above E coli UTI --cont home med, Cipro CKD 3 --d/c Naproxen, avoid NSAID --monitor renal function Drug Abuse --UDS positive for cocaine --counseled
[2020-07-09] MEDS: hydrOXYzine 25 MG TAB PO PRN (16:06)
[2020-07-09] MEDS: OLANZapine 5 MG TAB PO SCH (20:21)
[2020-07-09] MEDS: Amitriptyline HCl 25 MG TAB PO SCH (20:21)
[2020-07-10] MEDS: Aspirin 81 mg Enteric Coated Tablet PO SCH (08:57)
[2020-07-10] MEDS: Ubidecarenone 50 MG CAP PO SCH (08:57)
[2020-07-10] MEDS: Gabapentin 300 MG CAP PO SCH ×2 (08:57→16:02)
[2020-07-10] MEDS: Famotidine 20 MG TAB PO SCH (08:59)
[2020-07-10] MEDS: Topiramate 25 MG TAB PO SCH (08:59)
[2020-07-10] MEDS: Polyethylene Glycol 3350 17 GM Packet PO SCH (08:59)
[2020-07-10] MEDS: Multivitamin W/ Minerals 1 TAB PO SCH (08:59)
[2020-07-10] MEDS ORDERED: Furosemide 20 MG TAB PO SCH (09:15)
[2020-07-10] MEDS: Spironolactone 25 MG TAB PO SCH (10:19)
[2020-07-10] MEDS: Carvedilol 3.125 MG TAB PO SCH ×2 (10:20→16:51)
[2020-07-10] MEDS: HYDROcodone/Acetaminophen 5/325 mg Tablet PO PRN (10:22)
[2020-07-10] MEDS: Furosemide 40 MG TAB PO SCH (11:25)
[2020-07-10] MEDS ORDERED: Lidocaine 5% Patch TD SCH (12:00)
[2020-07-10 12:07] LABS: Anion Gap 17 mmol/L (10-20); BUN (Urea Nitrogen) 44 mg/dL (9.8-20.1); Calc. Creatinine Clearance 34 mL/min (70-130); Calcium 8.9 mg/dL (7.8-10.44); Carbon Dioxide 20 mmol/L (23-31); Chloride 106 mmol/L (98-107); Estimated GFR-MDRD 43; Glucose 133 mg/dL (80-115); Potassium 4.4 mmol/L (3.5-5.1); Sodium 139 mmol/L (136-145)
[2020-07-10 12:08] LABS: Eosinophils 5 % (0-10); Hemoglobin 13.7 g/dL (12.0-16.0); Lymphocytes 35 % (21-51); MDiff Complete? YES; Mean Corpuscular HGB CONC 34.1 g/dL (32.0-36.0); Mean Platelet Volume 10.2 fL (7.4-10.4); Monocytes 11 % (0-10); Neutrophil 49 % (42-75); Platelet Clumps MARKED; Platelet Morphology Comment PLT clumps seen-ADEQ; RBC Distribution Width 11.8 % (11.5-14.5); RBC Morphology Normal; White Blood Cell (WBC) Count 4.7 thou/uL (4.8-10.8)
--- NOTE | 2020-07-10 12:35 | RAD ---
XR Abdomen 1 View/KUB History: Left lower quadrant abdominal pain Comparison: Reference is made to a CT examination June 2020 Findings: No dilated loops of large or small bowel. Phlebolith in the right hemipelvis. Moderate stool burden throughout the colon. No abnormal calcifications project over the renal shadows . Low-grade S-shaped scoliosis thoracolumbar spine. No acute osseous abnormality. Impression: Moderate stool burden can be seen with constipation. No evidence for bowel obstruction.
[2020-07-10] MEDS ORDERED: Bisacodyl 5 MG TAB PO SCH (15:45)
[2020-07-10 16:00] VITALS: BP 100/57; TEMP 98.1
--- NOTE | 2020-07-10 16:28 | PDOC.DS.DS ---
Provider - Provider Date of Admission: 07/05/20 05:40 Date of Discharge: 07/10/20 Admitting Provider: Marty Sneed MD Consultations: Cardiology (Dr. Quiroz) Primary Care Physician: NO PCP PROVIDER Course - Hospital Course Hospital Course: DISCHARGE DIAGNOSES: 1. Acute on chronic systolic heart failure 2. Bipolar disorder 3. E. coli UTI, present on admission 4. Essential hypertension 5. CKD stage III 6. Substance abuse, urine drug screen positive for cocaine HISTORY OF PRESENT ILLNESS AND BRIEF HOSPITAL COURSE: The patient is a pleasant 65 years old female who has significant past medical histories of hepatitis C, CAD, hypertension, tobacco abuse, polysubstance abuse, presented to ED with complaint of short of breath and cough. She was found in CHF exacerbation. Her BNP was 580. Chest x-ray consistent with CHF finding. Urine drug screen positive for cocaine. Covid PCR was negative. Patient was subsequently admitted to hospitalist service for IV diuresis. Cardiology was consulted. Patient was seen by Dr. Quiroz. Patient was started on Entresto. She appeared to be tolerated well. Her echo shows EF 30-35%. She was transitioned to oral Lasix. Spironolactone was added. Her metoprolol was changed to Coreg. At this time, patient cleared to discharge from cardiology standpoint. She was fitted for LifeVest. She will need to follow up with her food adviser in 2 weeks. Patient was counseled extensively with regard to avoid recreational drug use. See above Understanding. PERTINENT IMAGING STUDIES: Chest x-ray: Findings of congestive heart failure 2D echo: EF 30-35%, mild dilated left atrium. Mild MR. Abdominal x-ray: Moderate stool burden can be seen with constipation. No evidence for bowel obstruction PROCEDURE PERFORMED: NONE DISCHARGE CONDITION: STABLE DISPOSITION: HOME PHYSICAL EXAM: General Appearance: Alert, oriented, resting comfortably, no apparent distress, well developed/nourished. HEENT: Normocephalic/atraumatic, moist mucous membrane, normal ENT inspection, normal tones. PERRLA, no scleral icterus, normal conjunctiva Neck: Supple, normal inspection, no JVD Respiratory: Lungs are clear bilaterally, normal breath sounds, no accessory muscle use Cardiovascular: Regular rate, regular rhythm, no murmur, no rubs Abdomen: Soft, nontender, nondistended, normal bowel sounds, no organomegaly, no guarding no rebound Back: Normal inspection, no CVA tenderness Extremities: No clubbing, no cyanosis, no edema Psych/Mental Status: Normal affect, speech, non-pressured, AAO x 3 Neurologic: CN II-XII are intact. Skin: Warm/Dry, Normal Color, no rashes DISCHARGE TIME SPENT: >30 MINUTES Resuscitation Status: 07/05/20 15:53 Resuscitation Status Routine Resuscitation Status: FULL: Full Resuscitation - Labs Lab Results: 07/10/20 11:11 07/10/20 11:11 Abnormal Lab Results - Last 48 hrs 07/09/20 04:14: BUN 43 H, Creatinine 1.30 H 07/10/20 11:11: Carbon Dioxide 20 L, BUN 44 H, Creatinine 1.26 H 07/10/20 11:11: WBC 4.7 L, RBC 3.90 L, MCV 103.0 H, MCH 35.0 H, Monocytes % (Manual) 11 H, Clumped Platelets MARKED H Microbiology - Entire Visit 07/05/20 03:38 Venous blood - Right Hand Blood Culture - Final NO GROWTH IN 5 DAYS 07/05/20 03:30 Venous blood - Left Hand Blood Culture - Final NO GROWTH IN 5 DAYS 07/05/20 03:36 Urine clean catch Urine Culture - Final Escherichia coli Escherichia coli#2 - Physical Exam Vitals: Vital Signs (12 hours) Temp Pulse Resp BP BP Pulse Ox 07/10/20 15:51 98.1 F 92 16 100/57 L 95 07/10/20 11:42 97.9 F 94 20 125/61 94 L 07/10/20 07:26 97.5 F L 78 20 111/64 96 Weight Admit Weight 93 lb Weight 105 lb 6.4 oz Physical Exam: The patient was seen and examined on the day of discharge. Plan - Discharge Medications Prescriptions: Spironolactone [Aldactone] 25 mg PO QAM-WM #30 tab Carvedilol [Coreg] 3.125 mg PO BID-WM #60 tab Aspirin [Ecotrin Low Strength] 81 mg PO DAILY #30 tab Sacubitril/Valsartan [Entresto 24 mg-26 mg Tablet] 1 tab PO BID #60 tab Furosemide [Lasix] 20 mg PO DAILY-AC #90 tab Home Medications: Medication Instructions Recorded Confirmed Type Ascorbic Acid [Vitamin C] 100 mg PO DAILY 08/31/15 07/05/20 History Gabapentin 600 mg PO TID 08/31/15 07/05/20 History Multivitamin With Minerals [Hair, 1 tablet PO DAILY 08/31/15 07/05/20 History Skin and Nails] OLANZapine [ZyPREXA] 5 mg PO HS 08/31/15 07/05/20 History Topiramate 25 mg PO BID 08/31/15 07/05/20 History Ubidecarenone [Co Q-10] 100 mg PO DAILY 08/31/15 07/05/20 History hydrOXYzine HCl [Hydroxyzine HCl] 25 mg PO TID PRN 08/31/15 07/05/20 History Ciprofloxacin HCl [Cipro] 500 mg PO Q12HR 5 Days tab 09/03/15 07/05/20 Rx Polyethylene Glycol 3350 [Miralax] 17 gm PO DAILY #0 pk 09/03/15 07/05/20 Rx Amitriptyline HCl [Elavil] 50 mg PO HS 07/05/20 07/05/20 History Aspirin [Ecotrin Low Strength] 81 mg PO DAILY #30 tab 07/10/20 Rx Carvedilol [Coreg] 3.125 mg PO BID-WM #60 tab 07/10/20 Rx Furosemide [Lasix] 20 mg PO DAILY-AC #90 tab 07/10/20 Rx Sacubitril/Valsartan [Entresto 24 1 tab PO BID #60 tab 07/10/20 Rx mg-26 mg Tablet] Spironolactone [Aldactone] 25 mg PO QAM-WM #30 tab 07/10/20 Rx Allergies: codeine Allergy (Verified 11/19/19 17:30) PER DR RUSH IN ER ORDER ketorolac tromethamine [From Toradol] Allergy (Verified 11/19/19 17:30) prochlorperazine [From Compazine] Allergy (Verified 11/19/19 17:30) PER DR RUSH IN ER ORDER prochlorperazine edisylate [From Compazine] Allergy (Verified 11/19/19 17:30) PER DR RUSH IN ER ORDER prochlorperazine maleate [From Compazine] Allergy (Verified 11/19/19 17:30) PER DR RUSH IN ER ORDER - Discharge Instructions Activity:: Activity as Tolerated Nourishment:: Low Sodium Diet - Follow up Plan Referrals: Cardiac Rehab - [facility] [Outside] - 7 Days (Your doctor has ordered outpatient cardiac rehab for you to begin within 1-2 weeks after you go home from the hospital. The location nearest to you is the [facility]. We will call you in 3-5 days to get you scheduled for your evaluation. If you do not receive a call, please reach out to us at [phone] and request an appointment.) PROVIDER,NO PCP [Primary Care Provider] - 7 Days (PLEASE CALL AND SCHEDULE FOLLOW UP APPOINTMENT. SEE PAPER ATTACHED. ) Roberto Quiroz MD [Active] - 14 Days (Please call the office to schedule a follow up appointment. You will need to follow up with Dr. Quiroz's office to finish paperwork for your discounted entresto.) Disposition: HOME Quality - Care Measures CORE MEASURES:: HF
[2020-07-10] MEDS ORDERED: Lidocaine Patch Removal TOP SCH (23:59)
[2020-07-11] MEDS ORDERED: Furosemide 20 MG TAB PO SCH (07:30)
== END 2020-07-10 18:44 | disposition home or self-care (01) | DRG 280 ==
LOC: ERS 02:47 → ERHOLD 05:40 → 2NO 14:54
PROVIDERS: ADMIT Internal Medicine; ATTEND Internal Medicine
DX: I13.0 Hypertensive heart and chronic kidney disease with heart failure and stage 1 through stage 4 chronic kidney disease, or unspecified chronic kidney disease (principal); I50.23 Acute on chronic systolic (congestive) heart failure; I21.A1 Myocardial infarction type 2; J96.01 Acute respiratory failure with hypoxia; N39.0 Urinary tract infection, site not specified; N17.9 Acute kidney failure, unspecified; Z20.828 Contact with and (suspected) exposure to other viral communicable diseases; Z23 Encounter for immunization; B96.20 Unspecified Escherichia coli [E. coli] as the cause of diseases classified elsewhere; F31.9 Bipolar disorder, unspecified; N18.30 Chronic kidney disease, stage 3 unspecified; F14.10 Cocaine abuse, uncomplicated; B18.2 Chronic viral hepatitis C; F17.210 Nicotine dependence, cigarettes, uncomplicated; F41.9 Anxiety disorder, unspecified; Z90.49 Acquired absence of other specified parts of digestive tract; Z90.710 Acquired absence of both cervix and uterus; Z91.14 Patient's other noncompliance with medication regimen; Z79.899 Other long term (current) drug therapy
CPT/HCPCS: 36415; 71045; 74018; 80048; 80053; 80306; 81003; 81015; 82553; 83605; 83735; 83880; 84443; 84484; 85025; 87040; 87077; 87086; 87186; 87635; 90471; 90732; 93005; 93306; 96374; 97139; G0009; J1885; J1940; J2270; U0003

== ENCOUNTER 2021-02-02 15:53 | Observation (INO) | payer MEDICARE ==
[~2021-02-02 15:53] MED LIST: Iopamidol-370 76% 500 ML 1 ML ONE
[2021-02-02 17:22] LABS: ALT (SGPT) 29 U/L (8-55); AST (SGOT) 39 U/L (5-34); Albumin 3.7 g/dL (3.4-4.8); Alkaline Phosphatase 70 U/L (40-110); Anion Gap 16 mmol/L (10-20); BUN (Urea Nitrogen) 32 mg/dL (9.8-20.1); Bilirubin, Total 0.5 mg/dL (0.2-1.2); Calc. Creatinine Clearance 0 mL/min (70-130); Calcium 8.9 mg/dL (7.8-10.44); Carbon Dioxide 21 mmol/L (23-31); Chloride 106 mmol/L (98-107); Globulin 3.6 g/dL (2.4-3.5); Glucose 111 mg/dL (80-115); Lipase 20 U/L (8-78); Potassium 4.3 mmol/L (3.5-5.1); Protein, Total 7.3 g/dL (5.8-8.1); Sodium 139 mmol/L (136-145)
[2021-02-02] MEDS ORDERED: Ondansetron PF 4 MG/2 ML Vial ONE (17:23)
[2021-02-02] MEDS ORDERED: Morphine 4 MG/ML VIAL ONE (17:23)
[2021-02-02 17:24] LABS: Hemoglobin 13.2 g/dL (12.0-16.0); Red Blood Cell (RBC) Count 3.76 mill/uL (4.20-5.40); White Blood Cell (WBC) Count 5.2 thou/uL (4.8-10.8)
[2021-02-02 17:29] LABS: #Basophils 0.1 thou/uL (0.0-0.2); #Lymphocytes 1.6 thou/uL (1.20-3.40); #Monocytes 0.3 thou/uL (0.11-0.59); #Neutrophils 3.2 thou/uL (1.40-6.50); %Basophils 1.5 % (0.0-1.0); %Eosinophils 0.8 % (0.0-10.0); %Neutrophils 61.7 % (42.0-75.0); MDiff Complete? YES; Macrocytosis SLIGHT = 6-15 cells (100X) (0-5/hpf); Mean Corpuscular HGB CONC 33.5 g/dL (32.0-36.0); Mean Corpuscular Hemoglobin 35.2 pg (27.0-31.0); Platelet Count 221 thou/uL (130-400); Platelet Morphology Comment Appears Adequate; RBC Distribution Width 13.2 % (11.5-14.5)
[2021-02-02 17:43] LABS: Bacteria/HPF None Seen HPF (None Seen); Bilirubin Negative (Negative); Blood, Urine Negative (Negative); Clarity Clear (Clear); Glucose, Urine (Dipstick) Normal (Negative); Ketone, Urine Negative (Negative); Leukocyte Negative Leu/uL (Negative); Nitrite Negative (Negative); Protein, Urine (Dipstick) 200 mg/dL (Neg-Trace); RBC/HPF None Seen HPF (0-3); Specific Gravity, Urine 1.029 (1.002-1.036); Squamous Epithelial 0-3 HPF (0-3); WBC/HPF 0-3 HPF (0-3)
[2021-02-02 17:44] LABS: CKMB 3.5 ng/mL (0-6.6)
[2021-02-02] MEDS ORDERED: Furosemide 40 MG/4 ML VIAL ONE (17:57)
[2021-02-02] MEDS ORDERED: Nitroglycerin 2% Ointment 1 INCH/1 GM Packet ONE (20:04)
[2021-02-02] MEDS ORDERED: Senokot S 8.6-50 MG TAB PO PRN (20:08)
[2021-02-02 20:13] LABS: Troponin I 0.056 ng/mL (< 0.028)
[2021-02-02] MEDS ORDERED: Aspirin 325 MG TAB PO SCH (21:00)
[2021-02-02] MEDS ORDERED: hydrALAZINE 20 MG/ML VIAL SLOW IVP PRN (21:02)
[2021-02-02] MEDS: Acetaminophen 325 MG TAB PO PRN (21:59)
[2021-02-02] MEDS: Bisacodyl 5 MG TAB PO PRN (22:00)
[2021-02-02 23:17] LABS: Hemoglobin A1c 5.2 % (4.0-6.0)
[2021-02-02 23:18] LABS: SARS-CoV-2 NAA Rapid Test Not Detected (NotDetected)
[2021-02-02 23:25] LABS: Cardiac Risk 2.2 (Less than 4.5)
[2021-02-02 23:29] LABS: Troponin I 0.064 ng/mL (< 0.028)
[2021-02-02] MEDS ORDERED: Amitriptyline HCl 25 MG TAB PO SCH (23:45)
[2021-02-02] MEDS: Nitroglycerin 0.4 MG TAB (25 Tab Bottle) SL PRN (23:55)
[2021-02-03] MEDS: Nitroglycerin 0.4 MG TAB (25 Tab Bottle) SL PRN (00:05)
[2021-02-03] MEDS ORDERED: Cyclobenzaprine 10 MG TAB PO SCH (00:30)
[2021-02-03 01:13] VITALS: BMI 21.3
[2021-02-03 07:13] LABS: #Basophils 0.1 thou/uL (0.0-0.2); #Eosinphils 0.1 thou/uL (0.0-0.7); #Lymphocytes 1.6 thou/uL (1.20-3.40); #Monocytes 0.4 thou/uL (0.11-0.59); #Neutrophils 3.3 thou/uL (1.40-6.50); %Basophils 1.3 % (0.0-1.0); %Eosinophils 1.4 % (0.0-10.0); %Lymphocytes 29.1 % (21.0-51.0); %Monocytes 7.8 % (0.0-10.0); %Neutrophils 60.5 % (42.0-75.0); Hemoglobin 12.5 g/dL (12.0-16.0); Mean Corpuscular HGB CONC 33.4 g/dL (32.0-36.0); Mean Corpuscular Hemoglobin 34.6 pg (27.0-31.0); Mean Platelet Volume 8.1 fL (7.4-10.4); Platelet Count 210 thou/uL (130-400); RBC Distribution Width 13.2 % (11.5-14.5); Red Blood Cell (RBC) Count 3.61 mill/uL (4.20-5.40); White Blood Cell (WBC) Count 5.4 thou/uL (4.8-10.8)
[2021-02-03 07:31] LABS: Anion Gap 10 mmol/L (10-20); BUN (Urea Nitrogen) 27 mg/dL (9.8-20.1); Calc. Creatinine Clearance 39 mL/min (70-130); Calcium 8.6 mg/dL (7.8-10.44); Carbon Dioxide 28 mmol/L (23-31); Chloride 104 mmol/L (98-107); Glucose 114 mg/dL (80-115); Potassium 3.4 mmol/L (3.5-5.1); Sodium 139 mmol/L (136-145)
[2021-02-03] MEDS: Bisacodyl 5 MG TAB PO PRN (07:45)
[2021-02-03] MEDS ORDERED: Potassium Chloride 20 MEQ TAB PO SCH (07:45)
[2021-02-03] MEDS: Polyethylene Glycol 3350 17 GM Packet PO SCH (07:45)
[2021-02-03] MEDS: Aspirin 325 MG TAB PO SCH (07:45)
[2021-02-03] MEDS: Enoxaparin Sodium 30 MG/0.3 ML SYRINGE SC SCH (07:45)
[2021-02-03] MEDS: Furosemide 20 MG TAB PO SCH (07:45)
[2021-02-03] MEDS: Cyclobenzaprine 10 MG TAB PO PRN ×2 (07:46→15:32)
[2021-02-03] MEDS ORDERED: Aspirin 81 mg Enteric Coated Tablet PO SCH (09:00)
[2021-02-03] MEDS ORDERED: Carvedilol 3.125 MG TAB PO SCH (09:30)
[2021-02-03] MEDS: Acetaminophen 325 MG TAB PO PRN (11:18)
[2021-02-03] MEDS ORDERED: Magnesium 2 GM/50 ML 2 GM in Premix Bag 1 BAG IVPB SCH (12:30)
[2021-02-03] MEDS: cloNIDine 0.1 MG TAB PO SCH ×2 (15:31→20:28)
[2021-02-03 16:02] LABS: Amphetamine Not Detected (NotDetected); Barbiturates Screen Not Detected (NotDetected); Benzodiazepine Screen Not Detected (NotDetected); Cocaine Metabolite Screen Detected (NotDetected); Medtox Control Line Valid? VALID (VALID); Medtox Reader # READER 1; Methadone Not Detected (NotDetected); Methamphetamine Not Detected (NotDetected); Opiate Screen Detected (NotDetected); Oxycodone Screen Not Detected (NotDetected); Phencyclidine (PCP) Not Detected (NotDetected); THC/Cannabinoid Screen Not Detected (NotDetected); Tricyclic Screen Detected (NotDetected)
[2021-02-03] MEDS: Carvedilol 3.125 MG TAB PO SCH (20:28)
[2021-02-03] MEDS ORDERED: Amitriptyline HCl 25 MG TAB PO SCH (21:00)
[2021-02-03] MEDS ORDERED: hydrOXYzine 25 MG TAB PO SCH (21:45)
[2021-02-04 05:49] LABS: Anion Gap 13 mmol/L (10-20); BUN (Urea Nitrogen) 26 mg/dL (9.8-20.1); Calc. Creatinine Clearance 33 mL/min (70-130); Calcium 8.3 mg/dL (7.8-10.44); Carbon Dioxide 26 mmol/L (23-31); Chloride 104 mmol/L (98-107); Glucose 129 mg/dL (80-115); Potassium 4.1 mmol/L (3.5-5.1); Sodium 139 mmol/L (136-145)
[2021-02-04 06:01] LABS: #Eosinphils 0.1 thou/uL (0.0-0.7); #Lymphocytes 1.5 thou/uL (1.20-3.40); #Monocytes 0.4 thou/uL (0.11-0.59); #Neutrophils 2.7 thou/uL (1.40-6.50); %Eosinophils 2.3 % (0.0-10.0); %Lymphocytes 30.8 % (21.0-51.0); %Monocytes 7.8 % (0.0-10.0); %Neutrophils 58.2 % (42.0-75.0); Hemoglobin 12.5 g/dL (12.0-16.0); MDiff Complete? YES; Macrocytosis SLIGHT = 6-15 cells (100X) (0-5/hpf); Mean Corpuscular HGB CONC 32.5 g/dL (32.0-36.0); Mean Corpuscular Hemoglobin 34.3 pg (27.0-31.0); Mean Platelet Volume 8.9 fL (7.4-10.4); Platelet Clumps MODERATE; Platelet Morphology Comment PLT clumps seen-ADEQ; RBC Distribution Width 13.4 % (11.5-14.5); Red Blood Cell (RBC) Count 3.63 mill/uL (4.20-5.40); White Blood Cell (WBC) Count 4.7 thou/uL (4.8-10.8)
[2021-02-04] MEDS: Furosemide 20 MG TAB PO SCH (06:48)
[2021-02-04] MEDS: Cyclobenzaprine 10 MG TAB PO PRN (06:48)
[2021-02-04] MEDS ORDERED: hydrOXYzine 25 MG TAB PO PRN (07:34)
[2021-02-04] MEDS: Polyethylene Glycol 3350 17 GM Packet PO SCH (07:58)
[2021-02-04] MEDS: Bisacodyl 5 MG TAB PO PRN (07:58)
[2021-02-04] MEDS: Aspirin 325 MG TAB PO SCH (07:58)
[2021-02-04] MEDS: cloNIDine 0.1 MG TAB PO SCH (07:59)
[2021-02-04] MEDS: Carvedilol 3.125 MG TAB PO SCH (07:59)
[2021-02-04] MEDS: Enoxaparin Sodium 30 MG/0.3 ML SYRINGE SC SCH (07:59)
[2021-02-04 08:11] VITALS: BP 146/83; TEMP 98.7
[2021-02-04] MEDS ORDERED: Cyanocobalamin (Vitamin B-12) 1,000 MCG TAB PO SCH (09:00)
[2021-02-04] MEDS ORDERED: Lisinopril 5 MG TAB PO SCH (09:00)
[2021-02-04] MEDS ORDERED: Atorvastatin Calcium 40 MG TAB PO SCH (21:00)
== END 2021-02-04 12:02 | disposition home or self-care (01) ==
LOC: ERS 15:53 → 2SW 19:19
PROVIDERS: ADMIT Student in an Organized Health Care Education/Training Program; ATTEND Student in an Organized Health Care Education/Training Program
DX: I13.0 Hypertensive heart and chronic kidney disease with heart failure and stage 1 through stage 4 chronic kidney disease, or unspecified chronic kidney disease (principal); N18.31 Chronic kidney disease, stage 3a; I50.23 Acute on chronic systolic (congestive) heart failure; R14.0 Abdominal distension (gaseous); R07.9 Chest pain, unspecified; M54.9 Dorsalgia, unspecified; R39.198 Other difficulties with micturition; I25.2 Old myocardial infarction; F14.10 Cocaine abuse, uncomplicated; Q63.1 Lobulated, fused and horseshoe kidney; K59.00 Constipation, unspecified; I08.1 Rheumatic disorders of both mitral and tricuspid valves; Z66 Do not resuscitate; Z87.891 Personal history of nicotine dependence; Z79.82 Long term (current) use of aspirin; Z79.899 Other long term (current) drug therapy; Z88.5 Allergy status to narcotic agent; Z88.8 Allergy status to other drugs, medicaments and biological substances; Z20.822 Contact with and (suspected) exposure to COVID-19
CPT/HCPCS: 51701; 71045; 74177; 80048 ×2; 80061; 80306; 82553; 82607; 82746; 83036; 83605; 83690; 83735; 83880; 84484 ×2; 85025 ×2; 93005; 93306; 96374; 96375; 97139; 99285; U0002; U0005; 36415; 80053; 81003; 81015; 84443; 96372; G0378; J0360; J1650; J1940; J2270; J2405; J3475; Q9967